=== PATIENT | male | born 1990 | race African-American/Black ===

== ENCOUNTER 2019-11-28 23:56 | Inpatient (IN) | payer MEDICAID, OTHER ==
[~2019-11-28] VITALS: Ht 162.6 cm; Wt 72.6 kg
[2019-11-29] MEDS ORDERED: MORPHINE SULFATE 4 MG/ML CPJ (NOT FOR IM USE) IV STA (00:26)
[2019-11-29] MEDS ORDERED: ONDANSETRON HCL 4MG/2ML INJ IV STA (00:26)
[2019-11-29 01:04] LABS: CHLORIDE 99 mEq/L (98-107)
[2019-11-29 01:12] LABS: CREATINE KINASE 31 IU/L (39-308)
[2019-11-29 01:15] LABS: HEMATOCRIT. 29.5 % (42.0-52.0); HEMOGLOBIN. 9.6 g/dL (14.0-18.0); MEAN CORPUSCULAR HEMOGLOBIN 24.7 pg (28.0-32.0); MEAN CORPUSCULAR VOLUME 76.1 fL (80.0-94.0); MEAN PLATELET VOLUME 7.3 fl (7.4-10.4); PLATELET 673 x1000/uL (130-400); RED BLOOD CELL COUNT 3.87 mill/uL (4.7-6.1); RED CELL DISTRIBUTION WIDTH 17.8 % (11.6-14.6)
[2019-11-29] MEDS ORDERED: PIPERACILLIN/TAZOBACTAM 3.375GM/50ML PREMIX IV ONE (01:30)
[2019-11-29] MEDS ORDERED: IOHEXOL-350 100 ML BOTTLE ONE (01:30)
[2019-11-29] MEDS ORDERED: AZITHROMYCIN 500 MG in DEXT 5% WATER 250 ML IV SCH (01:30)
[2019-11-29] MEDS ORDERED: VANCOMYCIN 1 G PREMIX 200 ML IV NR (01:30)
[2019-11-29 01:49] LABS: D-DIMER 3.21 mg/L FEU (<0.50); INR 1.3; PARTIAL THROMBOPLASTIN TIME 30.6 sec (23.4-31.0); PROTHROMBIN TIME 13.1 sec (9.6-11.0)
[2019-11-29 01:53] LABS: FIBRINOGEN > 900 mg/dL (200-400)
[2019-11-29] MEDS ORDERED: PIPERACILLIN/TAZ 3.375G PREMIX 50 ML IV NR (02:00)
[2019-11-29 02:47] LABS: CLARITY URINE CLEAR (CLEAR); COLOR URINE DARK YELLOW (YELLOW); KETONES URINE TRACE (NEGATIVE); LEUKOCYTE ESTERASE URINE NEGATIVE (NEGATIVE); NITRITE URINE NEGATIVE (NEGATIVE); OCCULT BLOOD URINE NEGATIVE (NEGATIVE); PROTEIN URINE 1+ (NEGATIVE); SPECIFIC GRAVITY URINE 1.064 (1.005-1.030)
[2019-11-29 03:30] VITALS: BP_SYST 125; BP_SYST 139; BP_DIAS 75
[2019-11-29 04:00] VITALS: BP 128/75
[2019-11-29] MEDS ORDERED: ONDA8TAB6 PO (04:12)
[2019-11-29] MEDS ORDERED: BICT1TAB PO (04:12)
[2019-11-29] MEDS ORDERED: SULF1TAB48 PO (04:12)
[2019-11-29] MEDS: HYDROCODONE/ACETAMINOPHEN 10/325MG TABLET PO PRN (05:36)
[2019-11-29 05:48] LABS: ATYPICAL LYMPHOCYTES 1
[2019-11-29 05:49] LABS: PLATELET ESTIMATE INCREASED
[2019-11-29] MEDS ORDERED: DIPHENHYDRAMINE 50MG/ML VIAL IV PRN (07:45)
[2019-11-29] MEDS ORDERED: ONDANSETRON HCL 4MG/2ML INJ IV PRN (07:45)
[2019-11-29] MEDS ORDERED: HYDRALAZINE 20MG/ML VIAL IV PRN (07:45)
[2019-11-29] MEDS ORDERED: IPRATROPIUM/ALBUTEROL 0.5-3(2.5)MG/3ML NEB HHN PRN (07:45)
[2019-11-29] MEDS ORDERED: MAGNESIUM/ALUMINUM HYDROXIDE/SIMETHICONE 30ML UDC PO PRN (07:45)
[2019-11-29] MEDS ORDERED: LORAZEPAM 2MG/ML CPJ IV PRN (07:45)
[2019-11-29] MEDS ORDERED: DOCUSATE SODIUM 100MG CAPSULE PO PRN (07:45)
[2019-11-29] MEDS ORDERED: CEFTRIAXONE 1 G PREMIX 50 ML IV SCH (07:45)
[2019-11-29] MEDS ORDERED: CLONIDINE 0.1MG TABLET PO PRN (07:45)
[2019-11-29] MEDS ORDERED: ALBUTEROL 6.7GM HFA INHALER ORI PRN (07:45)
[2019-11-29 08:00] VITALS: BP 140/88
[2019-11-29] MEDS: ENOXAPARIN 40MG/0.4ML SYR SUBCUT SCH ×2 (08:36→08:43)
[2019-11-29] MEDS: GUAIFENESIN 200MG/10ML SUGAR FREE UDC PO PRN ×3 (08:36→16:03)
[2019-11-29] MEDS: CEFTRIAXONE 1,000 MG in DEXTROSE 5% WATER 50 ML IV SCH (10:00)
[2019-11-29 12:00] VITALS: BP 109/62
[2019-11-29] MEDS: SODIUM CHLORIDE 0.9% INJ 3ML FLUSH IVF SCH ×2 (13:38→22:00)
[2019-11-29] MEDS ORDERED: POTASSIUM CHLORIDE 20MEQ TABLET SR PO NR (15:30)
[2019-11-29 16:00] VITALS: BP 120/60
[2019-11-29] MEDS: MORPHINE SULFATE 4 MG/ML CPJ (NOT FOR IM USE) IV PRN ×2 (16:03→20:09)
[2019-11-29 20:00] VITALS: BP 100/57
[2019-11-29] MEDS: ACETAMINOPHEN 325MG TABLET PO PRN (20:10)
[2019-11-30] VITALS: BP 92/61
[2019-11-30] MEDS ORDERED: AZITHROMYCIN 500 MG in DEXT 5% WATER 250 ML IV SCH ×2
[2019-11-30] MEDS: MORPHINE SULFATE 4 MG/ML CPJ (NOT FOR IM USE) IV PRN ×2 (03:35→10:26)
[2019-11-30 04:00] VITALS: BP 98/62
[2019-11-30] MEDS: SODIUM CHLORIDE 0.9% INJ 3ML FLUSH IVF SCH ×3 (05:25→20:46)
[2019-11-30] MEDS: HYDROCODONE/ACETAMINOPHEN 10/325MG TABLET PO PRN ×2 (05:55→14:54)
[2019-11-30 07:51] LABS: HEMATOCRIT. 29.4 % (42.0-52.0); HEMOGLOBIN. 9.5 g/dL (14.0-18.0); MEAN CORPUSCULAR VOLUME 77.5 fL (80.0-94.0); PLATELET 701 x1000/uL (130-400); RED CELL DISTRIBUTION WIDTH 17.9 % (11.6-14.6)
[2019-11-30 08:03] LABS: CHLORIDE 100 mEq/L (98-107)
[2019-11-30 08:30] VITALS: BP 112/70
[2019-11-30] MEDS: CEFTRIAXONE 1,000 MG in DEXTROSE 5% WATER 50 ML IV SCH (08:57)
[2019-11-30] MEDS: ENOXAPARIN 40MG/0.4ML SYR SUBCUT SCH ×3 (08:57→09:17)
[2019-11-30 11:32] LABS: PLATELET ESTIMATE INCREASED
[2019-11-30 12:00] VITALS: BP 104/60
[2019-11-30] MEDS: ACETAMINOPHEN 325MG TABLET PO PRN ×2 (12:20→21:57)
[2019-11-30] MEDS: GUAIFENESIN 200MG/10ML SUGAR FREE UDC PO PRN ×2 (12:20→22:56)
[2019-11-30 16:00] VITALS: BP 111/69
[2019-11-30] MEDS: BIKTARVY PO SCH (17:51)
[2019-11-30 20:00] VITALS: BP 130/78
[2019-11-30] MEDS: ZOLPIDEM TARTRATE 5MG TABLET PO PRN (20:05)
[2019-11-30] MEDS: CLOTRIMAZOLE 1% CREAM 30GM TOP SCH (20:05)
[2019-11-30] MEDS: METRONIDAZOLE 500MG TABLET PO SCH (20:05)
[2019-12-01] VITALS: BP 110/74
[2019-12-01] MEDS: ACETYLCYSTEINE 100MG/ML 10% VIAL 4ML INH SCH (00:55)
[2019-12-01 04:00] VITALS: BP 122/78
[2019-12-01] MEDS: SODIUM CHLORIDE 0.9% INJ 3ML FLUSH IVF SCH ×3 (05:41→22:14)
[2019-12-01] MEDS: GUAIFENESIN 200MG/10ML SUGAR FREE UDC PO PRN ×2 (05:48→23:02)
[2019-12-01] MEDS: MORPHINE SULFATE 4 MG/ML CPJ (NOT FOR IM USE) IV PRN ×3 (05:48→23:03)
[2019-12-01 08:00] VITALS: BP 117/74
[2019-12-01] MEDS: METRONIDAZOLE 500MG TABLET PO SCH ×2 (08:51→22:14)
[2019-12-01] MEDS: CEFTRIAXONE 1,000 MG in DEXTROSE 5% WATER 50 ML IV SCH (08:52)
[2019-12-01] MEDS: CLOTRIMAZOLE 1% CREAM 30GM TOP SCH ×2 (08:53→22:15)
[2019-12-01] MEDS: BIKTARVY PO SCH (08:53)
[2019-12-01] MEDS: ENOXAPARIN 40MG/0.4ML SYR SUBCUT SCH (09:00)
[2019-12-01 12:00] VITALS: BP 116/71
[2019-12-01] MEDS ORDERED: IPRATROPIUM/ALBUTEROL 0.5-3(2.5)MG/3ML NEB HHN PRN (16:15)
[2019-12-01 20:00] VITALS: BP 111/88
[2019-12-01] MEDS: IPRATROPIUM/ALBUTEROL 0.5-3(2.5)MG/3ML NEB HHN SCH (20:25)
[2019-12-02] VITALS: BP 110/72
[2019-12-02] MEDS: IPRATROPIUM/ALBUTEROL 0.5-3(2.5)MG/3ML NEB HHN SCH ×5 (00:50→22:54)
[2019-12-02 04:00] VITALS: BP 123/84
[2019-12-02] MEDS: SODIUM CHLORIDE 0.9% INJ 3ML FLUSH IVF SCH ×3 (05:13→22:07)
[2019-12-02] MEDS: MORPHINE SULFATE 4 MG/ML CPJ (NOT FOR IM USE) IV PRN ×2 (05:13→22:06)
[2019-12-02 06:17] LABS: HEMATOCRIT. 31.2 % (42.0-52.0); HEMOGLOBIN. 9.9 g/dL (14.0-18.0); MEAN CORPUSCULAR HEMOGLOBIN 24.6 pg (28.0-32.0); MEAN CORPUSCULAR VOLUME 77.6 fL (80.0-94.0); MEAN PLATELET VOLUME 6.7 fl (7.4-10.4); PLATELET 847 x1000/uL (130-400); RED BLOOD CELL COUNT 4.02 mill/uL (4.7-6.1); RED CELL DISTRIBUTION WIDTH 18.1 % (11.6-14.6)
[2019-12-02 06:29] LABS: CHLORIDE 102 mEq/L (98-107)
[2019-12-02 08:00] VITALS: BP 136/99
[2019-12-02 09:10] LABS: ABSOLUTE BASOPHILS 0.1 x10E3/uL (0.0-0.2); ABSOLUTE EOSINOPHILS 0.2 x10E3/uL (0.0-0.4); ABSOLUTE LYMPHOCYTES 1.8 x10E3/uL (0.7-3.1); ABSOLUTE MONOCYTES 1.3 x10E3/uL (0.1-0.9); ABSOLUTE NEUTROPHILS 5.7 x10E3/uL (1.4-7.0); BASOPHILS 1 % (Not Estab.); HEMATOCRIT 33.2 % (37.5-51.0); IMMATURE GRANULOCYTES 2 % (Not Estab.); IMMATURE GRANULOCYTES ABSOLUTE 0.2 x10E3/uL (0.0-0.1); LYMPHOCYTES 20 % (Not Estab.); MEAN CORPUSCULAR HEMOGLOBIN 24.6 pg (26.6-33.0); MEAN CORPUSCULAR HGB CONC. 30.1 g/dL (31.5-35.7); MEAN CORPUSCULAR VOLUME 82 fL (79-97); MONOCYTES 14 % (Not Estab.); NEUTROPHILS 61 % (Not Estab.); PLATELETS 811 x10E3/uL (150-450); RBC 4.07 x10E6/uL (4.14-5.80); RED CELL DISTRIBUTION WIDTH 17.3 % (11.6-15.4); WBC 9.4 x10E3/uL (3.4-10.8)
[2019-12-02] MEDS: CEFTRIAXONE 1,000 MG in DEXTROSE 5% WATER 50 ML IV SCH (09:52)
[2019-12-02] MEDS: METRONIDAZOLE 500MG TABLET PO SCH ×2 (09:52→20:45)
[2019-12-02] MEDS: CLOTRIMAZOLE 1% CREAM 30GM TOP SCH ×2 (10:17→20:46)
[2019-12-02] MEDS: BIKTARVY PO SCH (10:18)
[2019-12-02 12:00] VITALS: BP 129/87
[2019-12-02] MEDS: ACETYLCYSTEINE 100MG/ML 10% VIAL 4ML INH SCH ×2 (12:02→16:05)
[2019-12-02 13:11] LABS: % CD 4 POS. LYMPHOCYTES 16.5 % (30.8-58.5); % CD 8 POS. LYMPH 54.9 % (12.0-35.5); ABSOLUTE CD 3 1314 /uL (622-2402); ABSOLUTE CD 4 HELPER 297 /uL (359-1519); ABSOLUTE CD 8 SUPPRESSOR 988 /uL (109-897)
[2019-12-02 13:42] LABS: PLATELET ESTIMATE MARKEDLY INCREASED
[2019-12-02 20:00] VITALS: BP 128/92
[2019-12-02] MEDS: ZOLPIDEM TARTRATE 5MG TABLET PO PRN (22:07)
[2019-12-02] MEDS: GUAIFENESIN 200MG/10ML SUGAR FREE UDC PO PRN (22:10)
[2019-12-03] MEDS: ACETYLCYSTEINE 100MG/ML 10% VIAL 4ML INH SCH ×3 (00:43→13:22)
[2019-12-03] MEDS: IPRATROPIUM/ALBUTEROL 0.5-3(2.5)MG/3ML NEB HHN SCH ×3 (00:43→13:22)
[2019-12-03] MEDS: SODIUM CHLORIDE 0.9% INJ 3ML FLUSH IVF SCH ×2 (05:39→14:00)
[2019-12-03] MEDS: MORPHINE SULFATE 4 MG/ML CPJ (NOT FOR IM USE) IV PRN (06:31)
[2019-12-03 06:48] LABS: HEMATOCRIT. 30.9 % (42.0-52.0); HEMOGLOBIN. 9.7 g/dL (14.0-18.0); MEAN CORPUSCULAR HEMOGLOBIN 24.7 pg (28.0-32.0); MEAN CORPUSCULAR VOLUME 78.6 fL (80.0-94.0); MEAN PLATELET VOLUME 6.6 fl (7.4-10.4); PLATELET 865 x1000/uL (130-400); RED BLOOD CELL COUNT 3.93 mill/uL (4.7-6.1)
[2019-12-03 07:07] LABS: CHLORIDE 107 mEq/L (98-107)
[2019-12-03 08:00] VITALS: BP 125/79
[2019-12-03] MEDS: METRONIDAZOLE 500MG TABLET PO SCH (08:47)
[2019-12-03] MEDS: CEFTRIAXONE 1,000 MG in DEXTROSE 5% WATER 50 ML IV SCH (08:47)
[2019-12-03] MEDS: CLOTRIMAZOLE 1% CREAM 30GM TOP SCH (08:52)
[2019-12-03 09:56] VITALS: BP_SYST 125; BP_SYST 136; BP_DIAS 79; BP_DIAS 96
[2019-12-03 12:00] VITALS: BP 130/92
[2019-12-03 12:04] VITALS: BP 130/92
[2019-12-03] MEDS: HYDROCODONE/ACETAMINOPHEN 10/325MG TABLET PO PRN (12:04)
[2019-12-03 12:19] LABS: NUCLEATED RED BLOOD CELLS 41 /100 WBC; PLATELET ESTIMATE INCREASED
[2019-12-03] MEDS ORDERED: BIKTARVY PO SCH (18:00)
[2019-12-03] MEDS ORDERED: METOPROLOL TARTRATE 25MG TABLET PO SCH (21:00)
[2019-12-09 08:09] LABS: *HIV-1 RNA BY PCR <20 copies/mL (.)
== END 2019-12-03 17:30 | disposition home or self-care (01) | DRG 720 ==
LOC: ER 23:56 → EDBEDREQ 11-29 01:20 → 7WST 11-29 02:01 → EDBEDREQSVC 11-29 02:06 → EDBEDREQTM 11-29 02:06 → EDBEDREQ 11-29 02:06 → ENRESERV 11-29 02:12 → 8WST 11-30 10:48
PROVIDERS: ADMIT Internal Medicine; ATTEND Internal Medicine
DX: A41.9 Sepsis, unspecified organism (principal); J93.9 Pneumothorax, unspecified; J96.00 Acute respiratory failure, unspecified whether with hypoxia or hypercapnia; E87.6 Hypokalemia; E87.1 Hypo-osmolality and hyponatremia; G47.00 Insomnia, unspecified; I31.3 Pericardial effusion (noninflammatory); C34.90 Malignant neoplasm of unspecified part of unspecified bronchus or lung; J18.8 Other pneumonia, unspecified organism; R94.31 Abnormal electrocardiogram [ECG] [EKG]; D47.3 Essential (hemorrhagic) thrombocythemia; R91.8 Other nonspecific abnormal finding of lung field; D64.9 Anemia, unspecified; C46.9 Kaposi's sarcoma, unspecified; D68.59 Other primary thrombophilia; E43 Unspecified severe protein-calorie malnutrition; Z86.711 Personal history of pulmonary embolism; Z92.21 Personal history of antineoplastic chemotherapy; Z87.891 Personal history of nicotine dependence; Z68.27 Body mass index [BMI] 27.0-27.9, adult; Z79.01 Long term (current) use of anticoagulants; Z03.818 Encounter for observation for suspected exposure to other biological agents ruled out; Z21 Asymptomatic human immunodeficiency virus [HIV] infection status
CPT/HCPCS: 36415; 71045; 71275; 80048; 80053; 81003; 82550; 82728; 83605; 83615; 83735; 83880; 84145; 84484; 85025; 85379; 85384; 86359; 86360; 86850; 86900; 87070; 87536; 87635; 93005; 93306; 94640; 96365; 99285; J0456; J0696; J1650; J2060; J2270; J2405; J2543; J3370; J7060; J7608; Q9967